=== PATIENT | female | born 1935 | race Caucasian/White ===

== ENCOUNTER 2017-11-19 10:41 | Emergency (ER) | payer MEDICARE, OTHER ==
[2017-11-19] MEDS ORDERED: Ondansetron ODT 4 MG TAB ONE (12:07)
--- NOTE | 2017-11-19 13:06 | CT ---
CT BRAIN NONCONTRAST: DATE: 11/19/17. TIME: 11:41 a.m. HISTORY: An 82-year-old female status post acute head trauma from fall. FINDINGS: There is no midline shift or any other mass effect. There is no evidence of acute intracranial hemor rhage, large cortical infarct, obstructive hydrocephalus, or extraaxial fluid collection. Old left u pper parietal craniotomy changes are noted. There is hyperostosis frontalis interna. There is no ac hayden calvarial fracture. At least mild chronic ischemic white matter changes. There is no interval c hange overall compared to the prior CT of 07/24/17, except for the presence of a small left anterolater al scalp contusion on the current study. IMPRESSION: 1. No acute intracranial findings. 2. Old left upper parietal craniotomy. 3. Small acute, traumatic left upper scalp contusion. maggy Madrid POS: ANNELIESE
--- NOTE | 2017-11-19 13:09 | CT ---
CT CERVICAL SPINE WITH CORONAL AND SAGITTAL REFORMATIONS: HISTORY: Fall, neck pain. FINDINGS: There are multilevel degenerative changes in the cervical spine. No acute fracture or subluxation is seen. Right thyroid nodules are stable since 2015. POS: ANNELIESE
== END 2017-11-19 15:30 | disposition home or self-care (01) ==
LOC: ERS 10:41
DX: M54.2 Cervicalgia (principal); I25.10 Atherosclerotic heart disease of native coronary artery without angina pectoris; K21.9 Gastro-esophageal reflux disease without esophagitis; E78.5 Hyperlipidemia, unspecified; I10 Essential (primary) hypertension; J44.9 Chronic obstructive pulmonary disease, unspecified; F41.9 Anxiety disorder, unspecified; F31.9 Bipolar disorder, unspecified; F20.9 Schizophrenia, unspecified; W19.XXXA Unspecified fall, initial encounter
CPT/HCPCS: 70450; 72125; Q0162

== ENCOUNTER 2018-04-02 07:35 | Outpatient (CLI) | payer MEDICARE, OTHER ==
[2018-04-02] MEDS ORDERED: Iopamidol 370 76% 100 ML VIAL ONE (12:32)
== END 2018-04-02 07:36 | disposition home or self-care (01) ==
LOC: CT 07:35
PROVIDERS: ATTEND Internal Medicine
DX: R10.9 Unspecified abdominal pain (principal)
CPT/HCPCS: 74160; 82565

== ENCOUNTER 2019-02-27 09:08 | Day surgery (SDC) | payer MEDICARE, OTHER ==
[2019-02-26 13:11] VITALS: BMI 16.7
[2019-02-27] MEDS ORDERED: Levofloxacin 500 mg/D5W 100 ml Premix Bag ONE (10:55)
[2019-02-27] MEDS ORDERED: Clindamycin/D5W 900 mg/50 ml Premix Bag ONE (10:59)
[2019-02-27] MEDS ORDERED: Aztreonam 1 GM in Sodium Chloride 0.9% 100 ML IVPB SCH (11:30)
[2019-02-27 11:57] LABS: #Eosinphils 0.1 thou/uL (0.0-0.7); #Monocytes 0.5 thou/uL (0.11-0.59); #Neutrophils 4.8 thou/uL (1.40-6.50); %Basophils 0.6 % (0.0-1.0); %Eosinophils 1.5 % (0.0-10.0); %Lymphocytes 15.7 % (21.0-51.0); %Monocytes 8.2 % (0.0-10.0); Hemoglobin 9.5 g/dL (12.0-16.0); Mean Corpuscular HGB CONC 32.8 g/dL (32.0-36.0); Mean Corpuscular Hemoglobin 30.8 pg (27.0-31.0); Mean Corpuscular Volume 93.9 fL (78.0-98.0); Mean Platelet Volume 7.5 fL (7.4-10.4); Platelet Count 300 thou/uL (130-400); RBC Distribution Width 13.6 % (11.5-14.5); Red Blood Cell (RBC) Count 3.08 mill/uL (4.20-5.40); White Blood Cell (WBC) Count 6.5 thou/uL (4.8-10.8)
[2019-02-27 12:29] LABS: ALT (SGPT) 10 U/L (8-55); AST (SGOT) 17 U/L (5-34); Albumin 3.3 g/dL (3.4-4.8); Alkaline Phosphatase 68 U/L (40-150); Anion Gap 13 mmol/L (10-20); BUN (Urea Nitrogen) 26 mg/dL (9.8-20.1); Bilirubin, Total 1.6 mg/dL (0.2-1.2); Calc. Creatinine Clearance 54 mL/min (70-130); Calcium 9.1 mg/dL (7.8-10.44); Carbon Dioxide 25 mmol/L (23-31); Chloride 103 mmol/L (98-107); Estimated GFR-MDRD 89; Globulin 2.4 g/dL (2.4-3.5); Glucose 120 mg/dL (83-110); Potassium 3.1 mmol/L (3.5-5.1); Protein, Total 5.7 g/dL (6.0-8.3); Sodium 138 mmol/L (136-145)
[2019-02-27] MEDS ORDERED: Lidocaine 1% PF 5 ML VIAL ONE (16:03)
[2019-02-27] MEDS ORDERED: PROPOFOL 200 MG/20 ML VIAL ONE (16:03)
--- NOTE | 2019-02-27 18:42 | OP ---
DATE OF PROCEDURE: 02/27/2019 PREPROCEDURE DIAGNOSES: 1. Dementia. 2. Weight loss. 3. Anorexia. 4. Oropharyngeal dysphagia. 5. The patient's family requested a PEG tube placement. After long conversation about her end of life decisions, they still wanted to proceed with that. POSTPROCEDURE DIAGNOSES: 1. Normal esophagus. 2. Large hiatal hernia with the GE junction at cm from incisural orifice and the diaphragmatic hiatus at 45 cm. It is a 15-cm hiatal hernia. 3. Stomach otherwise normal in forward and retroflexed views. 4. Normal duodenum. 5. PEG tube placement was not successful as we could not get good transillumination. There was minimal finger indentation. A couple of attempts to pass the 22-gauge finder needle through the prepped abdomen to the gastric lumen were unsuccessful, and the procedure was aborted. RECOMMENDATIONS: 1. Reconsider end of life decisions with feeding. 2. Follow up PCP. 3. If family is still adamant about PEG tube placement, it would probably have to be open surgical which would be high risk in this patient. ANESTHESIA: TIVA. DESCRIPTION OF PROCEDURE: The patient was informed of the risks, benefits, and possible complications of endoscopy including perforation, reaction to medication, and aspiration as well as the risks of PEG tube placement including bleeding, injury to other intraabdominal organs, infection, and the risk the patient would pull the PEG tube out. Informed consent was obtained. The patient was brought to the endoscopy suite after being given aztreonam and clindamycin per prophylactic antibiotics. She was sedated, and a bite block was placed inside her orifice. The endoscope was advanced through the esophagus, stomach, and second and third portion of the duodenum and slowly removed. There was good distention of the stomach. The stomach was notable for a very large 15-cm hiatal hernia with most of the body and cardia of the stomach in the chest. The esophagus was normal. There was no evidence of esophagitis or strictures. The duodenum was normal. Attempts to find an adequate place for PEG tube placement were not effective as there was no transillumination. There was mild finger indentation, but not good finger indentation. In the area that we saw this, we went ahead and tried to prep the abdomen and use a 22-gauge finder needle to access the gastric lumen, which was unsuccessful. At this point in time, I felt that it was not safe to try to place percutaneous PEG and the procedure was aborted. No other reasons were found for the patient's weight loss and dysphagia. I think this is related to her dementia and Alzheimer's, and again at this point, especially with inability to percutaneously place a PEG, I think the issues of end of life decisions and feeding may be revisited. We would leave that to her, her family, and her primary physician. Job ID: [id number]
== END 2019-02-27 12:51 | disposition home or self-care (01) ==
LOC: SDC 09:08
PROVIDERS: ATTEND Internal Medicine Gastroenterology
PROC: 0DH63UZ Insertion of Feeding Device into Stomach, Percutaneous Approach (ICD-10-PCS; principal; 2019-02-27)
DX: R63.4 Abnormal weight loss (principal); R13.12 Dysphagia, oropharyngeal phase; K44.9 Diaphragmatic hernia without obstruction or gangrene; J44.9 Chronic obstructive pulmonary disease, unspecified; E78.5 Hyperlipidemia, unspecified; I10 Essential (primary) hypertension; F20.9 Schizophrenia, unspecified; G30.9 Alzheimer's disease, unspecified; F02.80 Dementia in other diseases classified elsewhere, unspecified severity, without behavioral disturbance, psychotic disturbance, mood disturbance, and anxiety; K21.9 Gastro-esophageal reflux disease without esophagitis; R63.0 Anorexia; Z68.1 Body mass index [BMI] 19.9 or less, adult; Z79.899 Other long term (current) drug therapy; Z88.0 Allergy status to penicillin; Z88.1 Allergy status to other antibiotic agents; Z88.2 Allergy status to sulfonamides; Z88.5 Allergy status to narcotic agent; Z88.6 Allergy status to analgesic agent
CPT/HCPCS: 80053; 84443; 85025; J1956; J2001; J2704; J3490

== ENCOUNTER 2019-07-16 09:20 | Inpatient (IN) | payer MEDICARE, OTHER ==
[2019-07-16] MEDS ORDERED: Piperacillin/Tazobactam 4.5 GM VIAL ONE (10:06)
[2019-07-16] MEDS ORDERED: Acetaminophen 325 MG Suppository ONE (10:07)
[2019-07-16] MEDS ORDERED: Acetaminophen 650 MG Suppository ONE (10:07)
[2019-07-16 10:20] LABS: #Lymphocytes 0.6 thou/uL (1.20-3.40); #Monocytes 0.8 thou/uL (0.11-0.59); #Neutrophils 12.6 thou/uL (1.40-6.50); %Basophils 0.2 % (0.0-1.0); %Eosinophils 0.1 % (0.0-10.0); %Lymphocytes 4.5 % (21.0-51.0); %Monocytes 5.7 % (0.0-10.0); %Neutrophils 89.5 % (42.0-75.0); Hemoglobin 14.1 g/dL (12.0-16.0); Mean Corpuscular HGB CONC 32.8 g/dL (32.0-36.0); Mean Corpuscular Volume 91.6 fL (78.0-98.0); Platelet Count 327 thou/uL (130-400); Red Blood Cell (RBC) Count 4.69 mill/uL (4.20-5.40); White Blood Cell (WBC) Count 14.1 thou/uL (4.8-10.8)
[2019-07-16 10:24] LABS: Bilirubin Small (Negative); Blood, Urine Moderate (Negative); Glucose, Urine (Dipstick) Negative (Negative); Leukocyte Small (Negative); Nitrite Negative (Negative); Protein, Urine (Dipstick) > or equal to 300 mg/dL (Neg-Trace); Urobilinogen 0.2 mg/dL (Less than 2)
[2019-07-16 10:28] LABS: Clarity Turbid (Clear)
[2019-07-16 10:30] LABS: RBC/HPF 21-50 HPF (0-3); Transitional Epithelial 0-3 HPF (None Seen)
[2019-07-16 10:31] LABS: Bacteria/HPF 4+ HPF (None Seen); Squamous Epithelial 0-3 HPF (0-3)
--- NOTE | 2019-07-16 10:36 | RAD ---
RIGHT HUMERUS 2 VIEWS: Date: 07/16/19 HISTORY: Injury. 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 An acute fracture was noted on the exam of 03/12/16. POS: ANNELIESE
[2019-07-16 10:40] LABS: ALT (SGPT) 16 U/L (8-55); AST (SGOT) 26 U/L (5-34); Alkaline Phosphatase 80 U/L (40-150); Anion Gap 18 mmol/L (10-20); BUN (Urea Nitrogen) 81 mg/dL (9.8-20.1); CK (CPK) 390 U/L (29-168); Calc. Creatinine Clearance 0 mL/min (70-130); Calcium 9.9 mg/dL (7.8-10.44); Carbon Dioxide 26 mmol/L (23-31); Chloride 118 mmol/L (98-107); Estimated GFR-MDRD 50; Globulin 2.7 g/dL (2.4-3.5); Glucose 142 mg/dL (83-110); Potassium 4.6 mmol/L (3.5-5.1); Protein, Total 6.7 g/dL (6.0-8.3); Sodium 157 mmol/L (136-145)
--- NOTE | 2019-07-16 10:41 | RAD ---
Exam: Chest one view HISTORY:Altered mental status Comparison: 07/24/2017 FINDINGS: Cardiac silhouette:Cardiomegaly. Aorta: Unremarkable Pulmonary vessels: Normal Costophrenic angles: Probable small left-sided pleural effusion. LUNGS: Increased interstitial opacities likely due to edema or infiltrate. Pneumothorax: None Osseous abnormalities: Markedly rightward curvature of the thoracic spine. Deformity of both proximal humeri. Right glenohumeral dislocation. These osseous findings are chronic. Probable foreign body or shrapnel in the left lung apex. IMPRESSION: 1. Increased interstitial prominence likely represent chronic change.
[2019-07-16] MEDS ORDERED: Senokot S 8.6-50 MG TAB PO PRN (14:17)
[2019-07-16] MEDS ORDERED: Acetaminophen 325 MG TAB PO PRN (14:17)
[2019-07-16] MEDS ORDERED: Acetaminophen 650 MG Suppository PR PRN (14:17)
[2019-07-16] MEDS ORDERED: Pharmacy to Dose 1 EACH VANCOMYCIN IVPB PRN (14:26)
--- NOTE | 2019-07-16 14:34 | PDOC.HHP ---
Hospitalist HPI - History of Present Illness Lethargic History of Present Illness: Patient is currently a resident at [facility] and receiving hospice care due to severe dementia. Previously refusing to eat and drink but more recently oral intake improved. Patient refusing all meds. Able to receive meds DE only. She is typically alert and though unable to hold a conversation she is vocal about being left alone. This morning she was reportedly lethargic and has been sleeping. Per family this is how she is when she develops an infection. They state her BP was very high at the [facility] however in the ER she has been hypotensive with BP as low as 74/54 also with a temperature. Patient is known to have frequent UTIs. Recently family has been notified by Hospice that she needs to have DNAR in place in order to continue to receive care from them. Family had planned to sign forms today. ED Course: Work-up done in the ED includes UA which was notable for UTI. UCx requested. Patient started on IV Antibiotics (Vanc and Zosyn). She has received IV hydration with 2 L of NS. Labs notable ERIK and hypernatremia. Currently fluids running at 125 cc/hr. BP currently improved to 130 systolic. HR 80s and Sats normal. Hospitalist History - Past Medical History Source: family Cardiac: reports: CAD, HTN, Hyperlipidemia, Other (ASCVD) Pulmonary: reports: COPD Gastrointestinal: reports: GERD, Irritable bowel disease Psych: reports: Anxiety, Bipolar, Depression, Schizophrenia, Other (Somatoform disorder History of drug overdose, intentional) Musculoskeletal: reports: Other (Scoliosis) Renal/: reports: UTI, Other (Urinary retention) - Past Surgical History Past Surgical History: reports: Appendectomy, Cholecystectomy, Cataract Removal , Hysterectomy, Total Knee Replacement (Bilateral), Tonsillectomy (Partial) Other Surgical History: Cystocele/rectocele 2012 Thyroidectomy - Family History Family History: reports: diabetes mellitus - Social History Smoking Status: Never smoker Alcohol: denies: None, Rare, Occassional, Heavy Drugs: denies: none, cocaine, heroine, marijuana, methamphetamine, Other Living Situation: [facility] ([facility]) Activity level: bed bound - Exam General Appearance: ill appearing (lethargic, alert to painful stimuli) Eye: PERRL, anicteric sclera ENT: normocephalic atraumatic, no oropharyngeal lesions, dry oral mucosa Neck: supple, no lymphadenopathy Heart: RRR Respiratory: CTAB Gastrointestinal: soft, non-distended, normal bowel sounds, no palpable masses, no guarding, no rigidity, tender to palpation Extremeties - other findings: trace edema involving bilateral lower extremities Skin: no lesions, no rashes Musculoskeletal: diffuse muscle atrophy Musculoskeletal - other findings: Deformited rt upper extremity (old fracture of humerus/shoulder dislocation Psychiatric: lethargic Hospitalist Results - Labs Result Diagrams: 07/16/19 09:57 07/16/19 09:57 Lab results: WBC 14.1 thou/uL (4.8-10.8) H 07/16/19 09:57 Hgb 14.1 g/dL (12.0-16.0) 07/16/19 09:57 Hct 43.0 % (36.0-47.0) 07/16/19 09:57 MCV 91.6 fL (78.0-98.0) 07/16/19 09:57 Plt Count 327 thou/uL (130-400) 07/16/19 09:57 Neutrophils % 89.5 % (42.0-75.0) H 07/16/19 09:57 Sodium 157 mmol/L (136-145) H 07/16/19 09:57 Potassium 4.6 mmol/L (3.5-5.1) 07/16/19 09:57 Chloride 118 mmol/L (98-107) H 07/16/19 09:57 Carbon Dioxide 26 mmol/L (23-31) 07/16/19 09:57 BUN 81 mg/dL (9.8-20.1) H 07/16/19 09:57 Creatinine 1.04 mg/dL (0.6-1.1) 07/16/19 09:57 Glucose 142 mg/dL (83-110) H 07/16/19 09:57 Calcium 9.9 mg/dL (7.8-10.44) 07/16/19 09:57 Total Bilirubin 1.0 mg/dL (0.2-1.2) 07/16/19 09:57 AST 26 U/L (5-34) 07/16/19 09:57 ALT 16 U/L (8-55) 07/16/19 09:57 Alkaline Phosphatase 80 U/L (40-150) 07/16/19 09:57 Creatine Kinase 390 U/L (29-168) H 07/16/19 09:57 Troponin I 0.019 ng/mL (< 0.028) 07/16/19 09:57 Serum Total Protein 6.7 g/dL (6.0-8.3) 07/16/19 09:57 Albumin 4.0 g/dL (3.4-4.8) 07/16/19 09:57 Urine Ketones Trace mg/dL (Negative) A 07/16/19 09:46 Urine Blood Moderate (Negative) A 07/16/19 09:46 Urine Nitrite Negative (Negative) 07/16/19 09:46 Ur Leukocyte Esterase Small (Negative) H 07/16/19 09:46 Urine RBC 21-50 HPF (0-3) A 07/16/19 09:46 Urine WBC 11-20 HPF (0-3) A 07/16/19 09:46 Ur Squamous Epith Cells 0-3 HPF (0-3) 07/16/19 09:46 Urine Bacteria 4+ HPF (None Seen) A 07/16/19 09:46 - EKG Interpretation EKG: NSR, HR 88 - Radiology Interpretation Chest x-ray Status: report reviewed by me (No acute intrathoracic abnormalities) Other Status: report reviewed by me (Right humerus XR: nonunion fracture, no acute changes.) Hospitalist H&P A/P - Problem (1) Sepsis secondary to UTI Code(s): A41.9 - SEPSIS, UNSPECIFIED ORGANISM; N39.0 - URINARY TRACT INFECTION, SITE NOT SPECIFIED Status: Acute Assessment and Plan: UCx pending. Will continue vancomycin. Zosyn switched to Rocephin given documented allergy to penicillin. Lactic acid and procalcitonin ordered as well as blood cultures. BP improved following fluids, continue IVF. Monitor BP. (2) Hypotension Status: Resolved Assessment and Plan: Continue IVF and monitor BP. Hold BP meds. (3) ERIK (acute kidney injury) Code(s): N17.9 - ACUTE KIDNEY FAILURE, UNSPECIFIED Status: Acute (4) Hypernatremia Code(s): E87.0 - HYPEROSMOLALITY AND HYPERNATREMIA Status: Acute Assessment and Plan: Due to dehydration, has been receiving IVF, repeat BMP. Continue to monitor. (5) Encephalopathy acute Code(s): G93.40 - ENCEPHALOPATHY, UNSPECIFIED Status: Acute (6) Dementia Code(s): F03.90 - UNSPECIFIED DEMENTIA WITHOUT BEHAVIORAL DISTURBANCE Status: Chronic Assessment and Plan: At risk for aspiration, on pureed diet at home. Speech Therapy consult requested. On hospice for severe dementia. Palliative care consult placed re: goals of care and DNAR. - Plan Plan: Case discussed with Dr. Govea who agrees with plan as above.
[2019-07-16 15:04] LABS: Anion Gap 16 mmol/L (10-20); BUN (Urea Nitrogen) 71 mg/dL (9.8-20.1); Calc. Creatinine Clearance 0 mL/min (70-130); Calcium 9.6 mg/dL (7.8-10.44); Carbon Dioxide 24 mmol/L (23-31); Chloride 120 mmol/L (98-107); Estimated GFR-MDRD 55; Glucose 119 mg/dL (83-110); Magnesium 2.6 mg/dL (1.6-2.6); Sodium 156 mmol/L (136-145)
[2019-07-16] MEDS ORDERED: Sodium Chloride 0.9% 1,000 ML IV SCH (15:15)
[2019-07-16] MEDS ORDERED: cefTRIAXone\\ROCEPHIN 2 GM in Sodium Chloride 0.9% 100 ML IVPB SCH (16:00)
[2019-07-16] MEDS ORDERED: Famotidine/PF 20 mg/2ml Vial SLOW IVP SCH (21:00)
--- NOTE | 2019-07-18 07:31 | PQF ---
HUY,RUBA PATEL JUNAID BURNETT [id number] CLINICAL DOCUMENTATION CLARIFICATION FORM: POST DISCHARGE Addendum to original discharge summary date: ____ Late entry note date: __ DATE: 07-18-19 ATTN:Junaid Stoner Please exercise your independent, professional judgment in responding to the clarification form. Clinical indicators are provided on the bottom of this form for your review Can you please identify the specificity of patients Encephalopathy. Please check appropriate box(s): [ ] Encephalopathy: Type: [ x ] Acute [ ] Subacute [ ] Chronic Etiology: [ x ] Metabolic [ ] Toxic [ ] Due to drugs [ ] Unspecified [ ] Other (please specify) [ ] Other diagnosis please specify: [ ] Unable to determine For continuity of documentation, please document condition throughout progress notes and discharge summary. Thank You. CLINICAL INDICATORS: HP 07/[address] Valero Lethargic HP 07/[address] Valero Notable for UTI HP 07/[address] Valero Sepsis secondary to UTI HP 07/[address] Valero ERIK and hypernatremia HP 07/[address] Valero Encephalopathy acute RISK FACTORS: HP Dr. Valero- UTI HP Dr. Valero- Dementia HP Dr. Valero- Anxiety, Bipolar TREATMENTS: HP- On hospice for severe dementia JAN 24 -Vancomycin IV JAN 24- Zosyn IV (This form is maintained as a part of the permanent medical record) 2014 [employer] All Rights Reserved Missy [email or web address] [not provided] MTDD
== END 2019-07-16 17:30 | disposition hospice, inpatient (51) | DRG 871 ==
LOC: ERS 09:20 → ERHOLD 11:10 → T4-B 16:44
PROVIDERS: ADMIT Family Medicine; ATTEND Family Medicine
DX: A41.9 Sepsis, unspecified organism (principal); G93.41 Metabolic encephalopathy; N17.9 Acute kidney failure, unspecified; E87.0 Hyperosmolality and hypernatremia; G93.40 Encephalopathy, unspecified; M41.9 Scoliosis, unspecified; Z66 Do not resuscitate; F45.9 Somatoform disorder, unspecified; I25.10 Atherosclerotic heart disease of native coronary artery without angina pectoris; K21.9 Gastro-esophageal reflux disease without esophagitis; E78.5 Hyperlipidemia, unspecified; J44.9 Chronic obstructive pulmonary disease, unspecified; I10 Essential (primary) hypertension; F32.9 Major depressive disorder, single episode, unspecified; F03.90 Unspecified dementia, unspecified severity, without behavioral disturbance, psychotic disturbance, mood disturbance, and anxiety; F41.9 Anxiety disorder, unspecified; Z88.0 Allergy status to penicillin; Z88.1 Allergy status to other antibiotic agents; Z90.49 Acquired absence of other specified parts of digestive tract; Z90.710 Acquired absence of both cervix and uterus; Z88.6 Allergy status to analgesic agent
CPT/HCPCS: 36415; 71045; 80053; 81003; 81015; 82550; 83605; 83735; 83880; 84484; 85025; 87040; 87076; 87077; 87086; 87186; 93005; 94760; J2543; J3370

== ENCOUNTER 2019-07-16 17:59 | Inpatient (IN) | payer OTHER ==
[2019-07-16 18:10] VITALS: BMI 17.7
[2019-07-16] MEDS ORDERED: Lorazepam 2 MG/ML VIAL SLOW IVP PRN (18:14)
[2019-07-17] MEDS: Piperacillin/Tazobactam 4.5 GM in Sodium Chloride 0.9% 100 ML IVPB SCH ×3 (03:33→16:05)
[2019-07-17] MEDS: fentaNYL 50 mcg/hour Patch TD SCH (03:59)
[2019-07-17] MEDS ORDERED: Dextrose 5% in Water 1,000 ML IV SCH (09:45)
[2019-07-17] MEDS: Diazepam 10 MG/2 ML SYRINGE IVP SCH ×2 (13:51→20:05)
[2019-07-17] MEDS ORDERED: Diazepam 10 MG/2 ML SYRINGE IVP PRN (19:52)
[2019-07-17] MEDS: Lorazepam 2 MG/ML VIAL SLOW IVP SCH (21:17)
[2019-07-18] MEDS: Lorazepam 2 MG/ML VIAL SLOW IVP SCH ×8 (00:19→21:00)
[2019-07-18 06:17] LABS: Sodium 167 mmol/L (136-145)
[2019-07-18] MEDS ORDERED: Dextrose 5% in Water 1,000 ML IV SCH (09:45)
[2019-07-19] MEDS: Lorazepam 2 MG/ML VIAL SLOW IVP SCH ×8 (00:01→21:00)
[2019-07-20] MEDS: Lorazepam 2 MG/ML VIAL SLOW IVP SCH ×8 (00:05→20:43)
[2019-07-20] MEDS: fentaNYL 50 mcg/hour Patch TD SCH (04:03)
[2019-07-21] MEDS: Lorazepam 2 MG/ML VIAL SLOW IVP SCH ×5 (00:19→12:15)
[2019-07-21 07:26] VITALS: BP 57/42; TEMP 99.2
--- NOTE | 2019-07-23 12:49 | DIS ---
DATE OF ADMISSION: 07/16/2019 DATE OF DISCHARGE: 07/21/2019 SUMMARY: Hospital course: This was an 84-year-old female, who was admitted for inpatient hospice due to continued decline. The patient had a primary diagnosis of advanced dementia and was on palliative care and hospice. Time of Detah The patient's time of was 2:25 on July 21. Disposition was mortuary and the was announced by nurse, Rosie Adams. Family was at bedside. No complications were reported that was expected. Job ID: [id number] MTDD
== END 2019-07-21 14:25 | disposition expired | DRG 951 ==
LOC: T4-B 17:59
PROVIDERS: ADMIT Internal Medicine Nephrology; ATTEND Internal Medicine Nephrology
DX: Z51.5 Encounter for palliative care (principal); A41.9 Sepsis, unspecified organism; N17.9 Acute kidney failure, unspecified; E87.0 Hyperosmolality and hypernatremia; N39.0 Urinary tract infection, site not specified; F20.89 Other schizophrenia; G93.40 Encephalopathy, unspecified; J44.9 Chronic obstructive pulmonary disease, unspecified; F01.50 Vascular dementia, unspecified severity, without behavioral disturbance, psychotic disturbance, mood disturbance, and anxiety; I25.10 Atherosclerotic heart disease of native coronary artery without angina pectoris; I10 Essential (primary) hypertension; K21.9 Gastro-esophageal reflux disease without esophagitis; Z96.653 Presence of artificial knee joint, bilateral; K58.9 Irritable bowel syndrome, unspecified; F41.9 Anxiety disorder, unspecified; F31.9 Bipolar disorder, unspecified; Z87.440 Personal history of urinary (tract) infections; Z90.49 Acquired absence of other specified parts of digestive tract; Z90.710 Acquired absence of both cervix and uterus; Z98.49 Cataract extraction status, unspecified eye
CPT/HCPCS: 36415; 84295; J2060; J2543; J3360; J3490